=== PATIENT | male | born 1955 | race Caucasian/White ===

== ENCOUNTER 2017-09-09 22:54 | Emergency (ER) | payer BC ==
[~2017-09-09] VITALS: Ht 172.7 cm; Wt 104.3 kg
[2017-09-09] MEDS ORDERED: IBUPROFEN 800 MG TABLET ONE (23:25)
[2017-09-09] MEDS ORDERED: HYDROcodone/APAP 5/325 TABLET ONE (23:25)
[2017-09-09] MEDS ORDERED: SODIUM CHLORIDE 0.9% 1,000ML IVBOLUS ONE (23:30)
[2017-09-09] MEDS ORDERED: SODIUM CHLORIDE FLUSH 10ML SYR IVF ONE (23:30)
[2017-09-09] MEDS ORDERED: HYDROcodone/APAP 5/325 TABLET PO ONE (23:30)
[2017-09-09] MEDS ORDERED: IBUPROFEN 200 MG TABLET PO ONE (23:30)
[2017-09-09 23:48] LABS: BASOPHILS # (AUTO) 0.06 x10^3/uL (0-0.1); BASOPHILS % (AUTO) 1 % (0-1); EOSINOPHILS # (AUTO) 0.21 x10^3/uL (0-0.4); EOSINOPHILS % (AUTO) 2 % (1-7); LYMPHOCYTES # (AUTO) 2.74 x10^3/uL (1-3.4); LYMPHOCYTES % (AUTO) 26 % (22-44); MD NO; MEAN CORPUSCULAR HEMOGLOBIN 25.7 pg (27.5-34.5); MEAN CORPUSCULAR HGB CONC 32.3 g/dL (33.2-36.2); MEAN CORPUSCULAR VOLUME 79.5 fL (81-97); MEAN PLATELET VOLUME 7.6 fL (7.4-10.4); MONOCYTES # (AUTO) 0.96 x10^3/uL (0.2-0.8); MONOCYTES % (AUTO) 9 % (2-9); NEUTROPHILS # (AUTO) 6.58 x10^3/uL (1.8-6.8); NEUTROPHILS % (AUTO) 62 % (42-75); PLATELET COUNT 420 x10^3/uL (130-400); RED BLOOD COUNT 5.19 x10^6/uL (4.38-5.82); RED CELL DISTRIBUTION WIDTH 16.3 % (9.4-14.8)
[2017-09-10] LABS: ANION GAP 12 mmol/L (5-15); CALCIUM 9.7 mg/dL (8.5-10.1); CHLORIDE 107 mmol/L (98-107); CREATININE 1.29 mg/dL (0.7-1.3)
[2017-09-10] MEDS ORDERED: MELO7.5T31 PO (01:25)
[2017-09-10] MEDS ORDERED: METF500T4 PO (01:25)
[2017-09-10] MEDS ORDERED: HYDR-3245 PO (01:25)
[2017-09-10] MEDS ORDERED: OMEP40CA6 PO (01:25)
[2017-09-10] MEDS ORDERED: TRAZ50TA18 PO (01:25)
[2017-09-10] MEDS ORDERED: ESCI20TA PO (01:25)
[2017-09-10] MEDS ORDERED: ROSU10TA PO (01:25)
[2017-09-10] MEDS ORDERED: GABA-827 PO (01:25)
[2017-09-10] MEDS ORDERED: LISI1TAB5 PO (01:25)
[2017-09-10] MEDS ORDERED: INSU100V8 SQ (01:25)
[2017-09-10] MEDS ORDERED: PIOG45TA3 PO (01:25)
[2017-09-10 01:32] LABS: TROPONIN I < 0.015 ng/mL (0.000-0.045)
[2017-09-10 02:13] VITALS: BP 141/75
== END 2017-09-10 02:16 | disposition home or self-care (01) ==
LOC: ED 23:59
DX: R06.00 Dyspnea, unspecified (principal); J20.9 Acute bronchitis, unspecified
CPT/HCPCS: 36415; 71046; 80048; 82040; 84484; 85025; 93005; 96360; 99285; J7030